=== PATIENT | female | born 1945 | race African-American/Black ===

== ENCOUNTER 2021-03-06 16:45 | Emergency (ER) | payer OTHER ==
[~2021-03-06] VITALS: Ht 167.6 cm; Wt 73.5 kg
[2021-03-06 18:25] VITALS: BP 147/72
== END 2021-03-06 18:44 | disposition home or self-care (01) ==
LOC: ER 16:45
DX: K59.00 Constipation, unspecified (principal); Z88.2 Allergy status to sulfonamides; Z88.1 Allergy status to other antibiotic agents